=== PATIENT | male | born 1960 | race Caucasian/White ===

== ENCOUNTER 2017-04-10 09:12 | Emergency (ER) | payer OTHER ==
[2017-04-10] MEDS: TETRACAINE 0.5% 4 ML OPH LEFT EYE (13:40)
[2017-04-10] MEDS: FLUORESCEIN STRIP LEFT EYE (13:40)
== END 2017-04-10 15:18 | disposition home or self-care (01) ==
LOC: FTE 09:12
DX: H57.12 Ocular pain, left eye (principal)
CPT/HCPCS: 99283; Z7502

== ENCOUNTER 2017-10-30 18:16 | Inpatient (IN) | payer OTHER ==
[2017-10-30] MEDS: SOD CHLORIDE 0.9% 500 ML IV (21:02)
[2017-10-30] MEDS: KETOROLAC 15 MG INJ IV (21:02)
[2017-10-30 21:09] LABS: ADD MAN DIFF? NO
[2017-10-30 21:11] LABS: BASOPHIL # 0.1 10^3/ul (0.0-0.1); BASOPHILS % 0.9 % (0.0-2.0); EOSINOPHILS # 0.2 10^3/ul (0.0-0.5); EOSINOPHILS % 2.1 % (0.0-7.0); HEMATOCRIT 34.2 % (42.0-52.0); HEMOGLOBIN 10.6 g/dl (14.0-18.0); LYMPHOCYTES # 1.9 10^3/ul (0.8-2.9); LYMPHOCYTES % 27.2 % (15.0-51.0); MEAN CORPUSCULAR HEMOGLOBIN 23.9 pg (29.0-33.0); MEAN CORPUSCULAR VOLUME 77.2 fl (82.0-101.0); MEAN PLATELET VOLUME 9.8 fl (7.4-10.4); MONOCYTE # 0.7 10^3/ul (0.3-0.9); MONOCYTES % 10.1 % (0.0-11.0); NEUTROPHIL # 4.2 10^3/ul (1.6-7.5); NEUTROPHILS % 59.4 % (39.0-77.0); PLATELET COUNT 426 10^3/UL (140-415); RED BLOOD COUNT 4.43 10^6/ul (4.70-6.10); RED CELL DISTRIBUTION WIDTH 15.4 % (11.5-14.5)
[2017-10-30 21:31] LABS: INR 1.04; PROTIME 13.7 Sec (11.9-14.9); PT RATIO 1.1
[2017-10-30 21:32] LABS: PARTIAL THROMBOPLASTIN TIME 32.3 Sec (25.0-35.0)
[2017-10-30 21:36] LABS: ANION GAP 14 (8-16); BLOOD UREA NITROGEN 20 mg/dl (7-20); CALCIUM 9.1 mg/dl (8.4-10.2); CARBON DIOXIDE 27 mmol/L (21-31); CHLORIDE 106 mmol/L (97-110); CREATININE 1.08 mg/dl (0.61-1.24); GLUCOSE 98 mg/dl (70-220); POTASSIUM 4.3 mmol/L (3.5-5.1); SODIUM 143 mmol/L (135-144)
[2017-10-30] MEDS: LIDOCAINE 1% (MDV) 10 ML INJ INJ (21:43)
[2017-10-30] MEDS: IBUPROFEN 600 MG TAB PO (22:00)
[2017-10-30 23:00] LABS: SYN FLD WBC 31044 /cmm (0-150)
[2017-10-30 23:01] LABS: SYN FLD COLOR YELLOW; SYN FLD VOLUME 0.5 mL (0-3.5)
[2017-10-30 23:02] LABS: SYN FLD CLARITY CLOUDY; SYN FLD CRYSTALS NO CRYSTALS SEEN (None seen)
[2017-10-30 23:04] LABS: SYN FLD SOURCE LEFT KNEE
[2017-10-30 23:12] LABS: SYN FLD MN % 13.6 &
[2017-10-30 23:13] LABS: SYN FLD PMN % 86.4 % (0.0-25.0)
[2017-10-30] MEDS: SOD CHLORIDE 0.9% 1,000 ML IV (23:38)
[2017-10-30] MEDS: CEFTRIAXONE 1 GM/50 ML (PMX) 50 ML IVPB (23:40)
[2017-10-30] MEDS: LIDOCAINE 1% (MDV) 20 ML INJ INJ (23:43)
[2017-10-31] MEDS ORDERED: VANCOMYCIN IV PER PHARMACY XX
[2017-10-31] MEDS ORDERED: HYDROCODONE/APAP (5/325) TAB PO ×2
[2017-10-31] MEDS ORDERED: ONDANSETRON 4 MG TAB PO
[2017-10-31] MEDS ORDERED: ACETAMINOPHEN 325 MG TAB PO
[2017-10-31] MEDS ORDERED: BISACODYL (EC) 5 MG TAB PO
[2017-10-31] MEDS ORDERED: DOCUSATE SODIUM 100 MG CAP PO
[2017-10-31] MEDS: VANCOMYCIN 1 GM (PMX) 250 ML IVPB (00:13)
[2017-10-31] MEDS: morphine 2 MG INJ IV (04:29)
[2017-10-31] MEDS: KETOROLAC 30 MG INJ IV ×2 (04:30→14:27)
[2017-10-31 05:51] LABS: ADD MAN DIFF? NO
[2017-10-31 05:54] LABS: BASOPHILS % 0.6 % (0.0-2.0); EOSINOPHILS # 0.2 10^3/ul (0.0-0.5); EOSINOPHILS % 2.4 % (0.0-7.0); HEMATOCRIT 30.8 % (42.0-52.0); HEMOGLOBIN 9.9 g/dl (14.0-18.0); LYMPHOCYTES % 15.5 % (15.0-51.0); MEAN CORPUSCULAR HEMOGLOBIN 24.4 pg (29.0-33.0); MEAN CORPUSCULAR HGB CONC 32.1 g/dl (32.0-37.0); MEAN PLATELET VOLUME 9.9 fl (7.4-10.4); MONOCYTE # 0.6 10^3/ul (0.3-0.9); MONOCYTES % 8.5 % (0.0-11.0); NEUTROPHIL # 4.9 10^3/ul (1.6-7.5); NEUTROPHILS % 72.9 % (39.0-77.0); PLATELET COUNT 386 10^3/UL (140-415); RED BLOOD COUNT 4.05 10^6/ul (4.70-6.10); RED CELL DISTRIBUTION WIDTH 15.7 % (11.5-14.5)
[2017-10-31 05:54] LABS: WHITE BLOOD COUNT 6.7 10^3/ul (4.8-10.8)
[2017-10-31 06:11] LABS: URIC ACID 4.7 mg/dl (3.1-7.9)
[2017-10-31 06:18] LABS: ALANINE AMINOTRANSFERASE 16 IU/L (13-69); ALBUMIN 2.8 g/dl (3.3-4.9); ALBUMIN/GLOBULIN RATIO 0.84; ALKALINE PHOSPHATASE 58 IU/L (42-121); ANION GAP 9 (8-16); ASPARTATE AMINO TRANSFERASE 15 IU/L (15-46); BILIRUBIN,INDIRECT 0.1 mg/dl (0-1.1); BILIRUBIN,TOTAL 0.1 mg/dl (0.2-1.3); BLOOD UREA NITROGEN 14 mg/dl (7-20); CALCIUM 8.2 mg/dl (8.4-10.2); CARBON DIOXIDE 23 mmol/L (21-31); CHLORIDE 113 mmol/L (97-110); CHOL/HDL RATIO 4.9 RATIO; CHOLESTEROL 123 mg/dl (100-200); CREATININE 0.67 mg/dl (0.61-1.24); GLUCOSE 110 mg/dl (70-220); HDL CHOLESTEROL 25 mg/dl (28-71); IRON 24 ug/dl (35-150); LDL CHOLESTEROL,CALCULATED 83 mg/dl; POTASSIUM 3.8 mmol/L (3.5-5.1); SODIUM 141 mmol/L (135-144); TOTAL PROTEIN 6.1 g/dl (6.1-8.1); TRIGLYCERIDES 75 mg/dl (0-149)
[2017-10-31 06:28] LABS: % IRON SATURATION 11 % SAT (22-52); TOTAL IRON BINDING CAPACITY 211 ug/dl (241-421)
[2017-10-31] MEDS: PIPER-TAZO 3.375 GM IV (PMX) 100 ML IVPB (07:02)
[2017-10-31 07:50] LABS: HEMOGLOBIN A1C 5.7 % (0-5.9)
[2017-10-31] MEDS: VANCOMYCIN 1 GM 250 ML IVPB (10:12)
[2017-10-31] MEDS: predniSONE 20 MG TAB PO (12:16)
[2017-10-31] MEDS: NACL 0.9% 3 ML SYG IV (12:16)
[2017-10-31 15:04] LABS: RHEUM FACTOR TITER 1:32
[2017-10-31 15:04] LABS: RHEUMATOID FACTOR POSITIVE (NEGATIVE)
[2017-11-03 12:17] LABS: ANA SCREEN POSITIVE (NEGATIVE)
[2017-11-03 13:51] LABS: ANA PATTERN HOMOGENEOUS
== END 2017-10-31 15:19 | disposition home or self-care (01) | DRG 547 ==
LOC: MS1 23:50 → E/R 10-31 16:10
DX: M06.9 Rheumatoid arthritis, unspecified (principal); E66.9 Obesity, unspecified; Z68.30 Body mass index [BMI] 30.0-30.9, adult; D64.9 Anemia, unspecified
CPT/HCPCS: 36415; 73562; 80048; 80053; 80061; 82728; 83036; 83540; 83735; 84443; 84560; 85025; 85610; 85730; 86038; 86430; 87070; 89060; 93971; 96374; 96375; 99285-25